=== PATIENT | female | born 2000 | race Caucasian/White ===

== ENCOUNTER 2019-05-20 19:01 | Emergency (ER) | payer SELFPAY ==
--- NOTE | 2019-05-20 20:44 | EDM.PDOC ---
ED HPI GENERAL MEDICAL PROBLEM - General Chief Complaint: Syncope Stated Complaint: PASSED OUT,Head Lice,Scabies Time Seen by Provider: 05/20/19 19:05 Source of Information: Reports: Patient History Limitations: Reports: No Limitations - History of Present Illness INITIAL COMMENTS - FREE TEXT/NARRATIVE: Patient presented to the ED because of a syncopal episode. She was taking a hot shower, felt dizzy then she passed out. Denies having any headache,N/V, dizziness. It was brief approximately 1 minute. She is also here because of a head lice and scabies. - Related Data Allergies Allergy/AdvReac Type Severity Reaction Status Date / Time No Known Allergies Allergy Verified 05/20/19 20:31 Home Meds: Home Meds cephALEXin [Keflex] 500 mg PO Q8H #30 cap 05/20/19 [Rx] Past Medical History [employer] TECH[employer]IST History: Reports: - Past Surgical History Cardiovascular Surgical History: Reports: Other (See Below) Other Cardiovascular Surgeries/Procedures: states that she had am open heart surgery as a child but has been resolved. Social & Family History - Family History Family Medical History: Noncontributory ED ROS GENERAL - Review of Systems Review Of Systems: See Below Constitutional: Reports: No Symptoms HEENT: Reports: No Symptoms Respiratory: Reports: No Symptoms Endocrine: Reports: No Symptoms GI/Abdominal: Reports: No Symptoms : Reports: No Symptoms Musculoskeletal: Reports: No Symptoms Skin: Reports: Pruritis, Erythema Neurological: Reports: No Symptoms Psychiatric: Reports: No Symptoms ED EXAM, GENERAL - Physical Exam Exam: See Below Exam Limited By: No Limitations General Appearance: Alert, No Apparent Distress Eye Exam: Bilateral Eye: PERRL Nose: Normal Inspection Throat/Mouth: Normal Inspection Head: Atraumatic Respiratory/Chest: No Respiratory Distress Cardiovascular: Normal Peripheral Pulses, Regular Rate, Rhythm, No Edema, No Gallop, No JVD, No Murmur, No Rub GI/Abdominal: Normal Bowel Sounds, Soft, Non-Tender, No Organomegaly Back Exam: Normal Inspection, Full Range of Motion Extremities: Normal Inspection, Normal Range of Motion Neurological: Alert, Oriented, CN II-XII Intact Skin Exam: Warm, Other (erythema, right arm. Head lice-too many too count) Course - Vital Signs Text/Narrative:: reassurance Last Recorded V/S: Last Vital Signs Temp 36.8 C 04/01/20 19:20 Pulse 109 H 05/20/19 19:20 Resp 17 05/20/19 19:20 BP 109/70 05/20/19 19:20 Pulse Ox 100 05/20/19 19:20 Departure - Departure Time of Disposition: 20:40 Disposition: Home, Self-Care 01 Condition: Good Clinical Impression: Head lice, Scabies, Cellulitis, Vasovagal syncope - Discharge Information Prescriptions: cephALEXin [Keflex] 500 mg PO Q8H #30 cap Instructions: Cellulitis, Adult, Lice, Adult, Scabies, Adult, Syncope, Easy-to- Read Referrals: Brandon Pang MD [Primary Care Provider] - Forms: ED Department Discharge Additional Instructions: please read discharge on 1. Scabies and Head Lice Apply the lotion on your head and body (where you have the rashes) once a week. Let the lotion stay on your scalp and skin for 10 hours then rinse it. Repeat the same procedure 1 week later. Wash your clothes and beddings with hot water Treat your dogs and cats with over the counter nix shampoo or it's generic equivalent. It'ss over the counter, [facility] Check your daughter if she has it too 2.Cellulitis take keflex 500 mg 3 times daily for 10 days 3. Vasovagal syncope Follow up if it's becoming more frequent Sepsis Event Note - Evaluation Sepsis Screening Result: No Definite Risk - Focused Exam Vital Signs: Vital Signs Temp Pulse Resp BP Pulse Ox 05/20/19 19:20 36.8 C 109 H 17 109/70 100 Date Exam was Performed: 05/20/19 Time Exam was Performed: 20:48
== END 2019-05-20 20:55 | disposition home or self-care (01) ==
LOC: FB.ED 19:01
DX: R55 Syncope and collapse (principal); L03.113 Cellulitis of right upper limb; B86 Scabies; B85.0 Pediculosis due to Pediculus humanus capitis
CPT/HCPCS: 99283